=== PATIENT | male | born 1960 | race Caucasian/White ===

== ENCOUNTER 2024-11-12 20:59 | Emergency (ER) | payer MEDICARE, BC ==
[~2024-11-12] VITALS: Ht 175.3 cm; Wt 108.9 kg
[2024-11-12] MEDS: ONDANSETRON HCL INJ 2MG/ML 2ML 2 MG/ML VIAL IV ONE (21:40)
[2024-11-12] MEDS: LACTATED RINGER'S 1,000 ML IV ONE (21:40)
[2024-11-12] MEDS: FAMOTIDINE 20 MG/2 ML VIAL IV ONE (21:41)
[2024-11-12 22:02] VITALS: PULSE 68; RESP 18; TEMP 98.5
[2024-11-12] MEDS ORDERED: PANTOPRAZOLE SO40 MG PO (23:17)
[2024-11-12] MEDS ORDERED: ONDANSETRON ODT4 MG PO (23:17)
[2024-11-12] MEDS ORDERED: SODIUM CHLORIDE 0.9% 1000ML 1,000 ML ONE (23:23)
[2024-11-12] MEDS: SODIUM CHLORIDE 0.9% 1000ML 1,000 ML IV STA (23:24)
[2024-11-13 00:35] VITALS: BP 151/70; PULSE 57; RESP 18; O2SAT 99
[2024-11-14] MEDS ORDERED: VITAMIN B-650 MG PO (03:09)
[2024-11-14] MEDS ORDERED: FOLIC ACID0.4 MG PO (03:09)
[2024-11-14] MEDS ORDERED: FINASTERIDE5 MG PO (03:09)
[2024-11-14] MEDS ORDERED: PROTONIX20 MG PO (03:09)
[2024-11-14] MEDS ORDERED: FLOMAX0.4 MG PO (03:09)
[2024-11-14] MEDS ORDERED: TROSPIUM CHLORI20 MG (03:09)
[2024-11-14] MEDS ORDERED: PREDNISONE20 MG PO (03:09)
[2024-11-14] MEDS ORDERED: VITAMIN E400 UNI1 PO (03:09)
[2024-11-14] MEDS ORDERED: OXYBUTYNIN CHLOR5 MG PO (03:09)
[2024-11-14] MEDS ORDERED: LEXAPRO10 MG PO (20:05)
[2024-11-14] MEDS ORDERED: HYDROXYZINE HCL25 MG PO (20:05)
== END 2024-11-13 00:30 | disposition home or self-care (01) ==
LOC: EDSEX → FSED 21:28
DX: R11.2 Nausea with vomiting, unspecified (principal); D64.9 Anemia, unspecified; F41.9 Anxiety disorder, unspecified; R53.81 Other malaise; K44.9 Diaphragmatic hernia without obstruction or gangrene; E86.0 Dehydration; Z98.84 Bariatric surgery status
CPT/HCPCS: 74176; 99284; J1308; J2405; J7030; J7121

== ENCOUNTER 2024-11-13 15:41 | Inpatient (IN) | payer MEDICARE, BC ==
[~2024-11-13] VITALS: Ht 172.7 cm; Wt 106.1 kg
[~2024-11-13 15:41] MED LIST: ONDANSETRON ODT4 MG PO; PANTOPRAZOLE SO40 MG PO
[2024-11-13] MEDS: FAMOTIDINE 20 MG/2 ML VIAL IV ONE (16:06)
[2024-11-13] MEDS: LACTATED RINGER'S 1,000 ML INJ ONE (16:06)
[2024-11-13] MEDS: ONDANSETRON HCL INJ 2MG/ML 2ML 2 MG/ML VIAL IV ONE (16:07)
[2024-11-13] MEDS ORDERED: ZOLPIDEM TARTRATE 5 MG TAB PO PRN (18:00)
[2024-11-13] MEDS ORDERED: HYDRALAZINE HCL 20 MG/ML VIAL IV PRN (18:00)
[2024-11-13] MEDS ORDERED: PROMETHAZINE 12.5MG/ NACL 0.9% 12.5 MG/50 ML BAG IV PRN (18:00)
[2024-11-13] MEDS ORDERED: DIPHENHYDRAMINE HCL INJ 50 MG/ML VIAL IV PRN (18:00)
[2024-11-13 18:18] VITALS: PULSE 76; RESP 18; TEMP 99
[2024-11-13] MEDS: LACTATED RINGER'S 1,000 ML IV SCH (19:20)
[2024-11-13 21:05] VITALS: BP 137/86; PULSE 67; RESP 19; TEMP 99; O2SAT 99
[2024-11-13] MEDS: ONDANSETRON HCL INJ 2MG/ML 2ML 2 MG/ML VIAL IV SCH (23:32)
[2024-11-14] VITALS (14 sets, daily range): BP systolic 106–142; BP diastolic 71–89; PULSE 58–68; RESP 16–19; TEMP 2.7–36.8; O2SAT 98–100
[2024-11-14] MEDS ORDERED: PROTONIX20 MG PO (03:09)
[2024-11-14] MEDS ORDERED: FOLIC ACID0.4 MG PO (03:09)
[2024-11-14] MEDS ORDERED: TROSPIUM CHLORI20 MG (03:09)
[2024-11-14] MEDS ORDERED: FINASTERIDE5 MG PO (03:09)
[2024-11-14] MEDS ORDERED: PREDNISONE20 MG PO (03:09)
[2024-11-14] MEDS ORDERED: OXYBUTYNIN CHLOR5 MG PO (03:09)
[2024-11-14] MEDS ORDERED: VITAMIN B-650 MG PO (03:09)
[2024-11-14] MEDS ORDERED: VITAMIN E400 UNI1 PO (03:09)
[2024-11-14] MEDS ORDERED: FLOMAX0.4 MG PO (03:09)
[2024-11-14 05:59] LABS: BASOPHILS % 0.4 % (0.0-1.0); EOSINOPHILS % 0.5 % (0.0-6.0); LYMPHOCYTES % 10.8 % (18.0-39.1); MONOCYTES % 14.6 % (4.4-11.3); NEUTROPHILS % 73.3 % (38.7-80.0); RED CELL DISTRIBUTION WIDTH 15.0 % (11.7-14.4)
[2024-11-14 06:40] LABS: EST GLOMERULAR FILTRATION RATE 98.0 ML/MIN (>=60)
[2024-11-14] MEDS: FAMOTIDINE 20 MG/2 ML VIAL IV SCH (10:10)
[2024-11-14] MEDS: ACETAMINOPHEN 325 MG TAB PO PRN (15:52)
[2024-11-14] MEDS ORDERED: LEXAPRO10 MG PO (20:05)
[2024-11-14] MEDS ORDERED: HYDROXYZINE HCL25 MG PO (20:05)
[2024-11-15] VITALS (9 sets, daily range): BP systolic 100–124; BP diastolic 67–76; PULSE 57–74; RESP 17–20; TEMP 97.3–98.9; O2SAT 94–99
[2024-11-15 06:43] LABS: % IRON SATURATION 6.0 % (15-50)
[2024-11-15] MEDS ORDERED: LIDOCAINE HCL 2% LOCAL INJ 5 ML SDV VIAL INJ ONE (10:40)
[2024-11-15] MEDS ORDERED: PROPOFOL IV EMULSION 10 MG/ML 20 ML VIAL ONE (10:41)
[2024-11-15] MEDS ORDERED: FENTANYL CITRATE/PF 100MCG/2 ML INJ ONE (10:41)
[2024-11-15] MEDS ORDERED: METOCLOPRAMIDE HCL 10 MG/2ML VIAL ONE (13:31)
[2024-11-15] MEDS: METOCLOPRAMIDE HCL 10 MG/2ML VIAL IV SCH (20:23)
[2024-11-16 03:09] VITALS: BP 110/70; PULSE 64; RESP 18; TEMP 98.6; O2SAT 98
[2024-11-16 09:02] VITALS: BP 110/70; PULSE 64; RESP 18; TEMP 98.6; O2SAT 98
[2024-11-16 09:16] VITALS: BP 120/79; PULSE 61; RESP 18; TEMP 98.4; O2SAT 97
[2024-11-16 14:35] VITALS: BP 125/77; PULSE 75; RESP 18; TEMP 98.1; O2SAT 97
== END 2024-11-16 16:00 | disposition home or self-care (01) | DRG 392 ==
LOC: FSED 15:49 → ERHOLD 16:02 → EDSEX 16:02 → MED/SURG3 20:30
PROVIDERS: ADMIT Internal Medicine; ATTEND Internal Medicine
PROC: 0DD58ZX Extraction of Esophagus, Via Natural or Artificial Opening Endoscopic, Diagnostic (ICD-10-PCS; principal; 2024-11-15 13:24)
DX: R11.2 Nausea with vomiting, unspecified (principal); D58.9 Hereditary hemolytic anemia, unspecified; B37.81 Candidal esophagitis; E86.0 Dehydration; K44.9 Diaphragmatic hernia without obstruction or gangrene; F41.9 Anxiety disorder, unspecified; R12 Heartburn; E66.9 Obesity, unspecified; D72.829 Elevated white blood cell count, unspecified; Z98.84 Bariatric surgery status; Z85.841 Personal history of malignant neoplasm of brain; Z92.21 Personal history of antineoplastic chemotherapy
CPT/HCPCS: 36415; 43235; 80048; 80053; 80076; 81003; 82607; 82728; 82746; 83540; 83690; 84466; 85025; 85045; 88112; 88305; 99283; J1308; J2003; J2405; J2470; J2765